=== PATIENT | male | born 1975 | race Caucasian/White ===

== ENCOUNTER 2020-09-18 07:03 | Emergency (ER) | payer OTHER ==
[~2020-09-18] VITALS: Wt 68.0 kg
[~2020-09-18 07:03] MED LIST: ANAPROX DS550 MG PO; CIPROFLOXACIN500 MG PO; CLARITIN10 MG PO; CORDROL20 MG PO; CYMBALTA60 MG PO; DARVOCET N 1001 TAB PO; DAYPRO600 M1 PO; FLONASE ALLERG9.9 ML NAS; HYDROCODONE BIT1 T11 PO; IBU-8800 MG PO; LIDEX0.05% T; MEDROL DOSEPAK4 MG PO; MOTRIN800 MG PO; NAPROSYN375 MG PO; NKHM; NORFLEX100 MG PO; PREDNICOT20 MG PO; PREDNISONE10 MG PO; ROBITUSSIN AC 110 ML PO; SKELAXIN800 MG PO; TRAMADOL HCL50 MG PO; ZITHROMAX250 MG PO
[2020-09-18] MEDS ORDERED: BUSPIRONE10 MG PO (07:20)
[2020-09-18] MEDS ORDERED: ZOFRAN4 MG PO (07:46)
== END 2020-09-18 07:52 | disposition home or self-care (01) ==
LOC: ED 07:03
DX: B34.9 Viral infection, unspecified (principal); F41.9 Anxiety disorder, unspecified; F32.9 Major depressive disorder, single episode, unspecified; Z98.890 Other specified postprocedural states; Z79.899 Other long term (current) drug therapy